=== PATIENT | female | born 1980 | race Caucasian/White ===

== ENCOUNTER 2016-11-17 07:14 | Emergency (ER) | payer OTHER ==
[~2016-11-17] VITALS: Ht 165.1 cm; Wt 53.4 kg
--- NOTE | ~2016-11-17 | EKG ---
PATIENT: TAISHA NAGY UNIT #: [id number] Ventricular Rate: 65 BPM Atrial Rate: 65 BPM P-R Interval: 108 ms QRS Duration: 100 ms Q-T Interval: 436 ms QTC Calculation(Bezet): 453 ms P [place]: 58 degrees Calculated R [place]: 71 degrees Calculated T [place]: 61 degrees Diagnosis Line: Sinus rhythm with short MO Diagnosis Line: Otherwise normal ECG Diagnosis Line: When compared with ECG of 05-OCT-2014 22:01, Diagnosis Line: No significant change was found Diagnosis Line: Confirmed by EPI PAEZ MD ([id number]) on 11/17/2016 Diagnosis Line: 11:08:07 PM INTERPRETING MD: JEANNINE GIVENS
--- NOTE | ~2016-11-17 | CR72 ---
[facility] A Service of [facility] RADIOLOGY TEXT RESULTS PATIENT: TAISHA NAGY LOCATION: [facility] : 84 UNIT #: [id number] AGE: [address]: Steve Grimaldo MD SEX: F ORDER DR: [id number] [facility] [address] [place], [place] [address] [id number] MR#: [id number] Acc #: [id number] NAME: TAISHA NAGY : 1980 SEX: F STUDY DATE/TIME: 11/17/2016 7:47 UNIT: [facility] ROOM: STUDY DESCRIPTION: CR Chest Single View Portable Attending Physician: Steve Grimaldo M.D. Ordering Physician: Steve Grimaldo M.D. Primary Care Physician: Larry Madrid M.D. MEDICAL IMAGING REPORT This report is preliminary unless electronic signature is present EXAM Portable chest radiograph. INDICATIONS Chest pain and shortness of breath starting today. FINDINGS A single AP portable view of the chest shows both lungs to be clear. The heart is normal in size. The mediastinal contour is normal. No significant bone abnormalities are seen. IMPRESSION Negative Dictated by... Lucy Chávez M.D. THIS IS AN ELECTRONICALLY VERIFIED REPORT Lucy Chávez M.D. at 11/18/2016 5:02 PM AFF/lb TD: 11/18/2016 09:37 JOB #: [id number] MEDICAL IMAGING REPORT Page 1 of 1 COPY
[~2016-11-17 07:14] MED LIST: KETOPROFEN PO; NO MEDICATIONS; PEN-VEE K PO; SKELAXIN PO; VOLTAREN50 MG PO; ZITHROMAX PO
[2016-11-17 07:53] LABS: POC - CKMB <1.0 ng/mL (0.0-7.9); POC - TROPONIN <0.05 ng/mL (<=0.05)
[2016-11-17 07:56] LABS: BASOPHIL% 0.4 % (0-2.5); EOSINOPHIL# 0.2 X10e3 (0-0.7); EOSINOPHIL% 2.9 % (0.0-7.0); HEMATOCRIT 35.6 % (35.0-45.0); LYMPHOCYTE# 2.9 X10e3 (1.0-3.5); LYMPHOCYTE% 44.9 % (17.0-45.0); MEAN CELL VOLUME 89.2 FL (83-96); MEAN CORPUSCULAR HEMOGLOBIN 30.2 PG (28-34); MEAN CORPUSCULAR HGB CONC 33.8 g/dL (30-36); MEAN PLATELET VOLUME 9.6 FL (6.5-11.5); MONOCYTE# 0.3 X10e3 (0-1.0); MONOCYTE% 5.1 % (3.0-12.0); NEUTROPHIL% 46.7 % (40-75); PLATELET COUNT 159 X10e3 (140-420); RED BLOOD COUNT 3.99 X10e (3.90-5.30); RED CELL DISTRIBUTION WIDTH 14.2 % (11.0-15.5); WHITE BLOOD COUNT 6.4 X10e3 (4.0-10.5)
[2016-11-17 07:57] LABS: DIFF IND NO
[2016-11-17 08:14] LABS: PARTIAL THROMBOPLASTIN TIME 26.6 SECONDS (23.5-31.3); PROTHROMBIN TIME (PATIENT) 10.7 SECONDS (10.0-11.7)
[2016-11-17 08:29] LABS: BILIRUBIN, DIRECT 0.1 mg/dL (0.0-0.2); BILIRUBIN,INDIRECT 0.5 mg/dL (0.0-0.9); BILIRUBIN,TOTAL 0.6 mg/dL (0.2-2.0); CALCIUM SERUM 8.9 mg/dL (8.4-10.2); CREATININE SERUM 0.6 mg/dL (0.6-1.4); GLOM FILT RATE Estimated 118.9 mL/min (>60); PROTEIN TOTAL SERUM 7.2 g/dL (6.0-8.3)
[2016-11-17 09:31] LABS: POC - CKMB <1.0 ng/mL (0.0-7.9); POC - TROPONIN <0.05 ng/mL (<=0.05)
== END 2016-11-17 10:39 | disposition short-term general hospital (02) ==
LOC: CED 07:14
PROVIDERS: Emergency Medicine
DX: R07.89 Other chest pain (principal); Z86.711 Personal history of pulmonary embolism
CPT/HCPCS: 36415; 71010; 80048; 80076; 82553; 83880; 84484; 85025; 85379; 85610; 85730; 93005; 96372; 99285; J1650